=== PATIENT | male | born 1930 | race Caucasian/White ===

== ENCOUNTER 2017-03-09 09:49 | Emergency (ER) | payer MEDICARE, BC ==
[~2017-03-09] VITALS: Ht 175.3 cm; Wt 86.2 kg
[~2017-03-09 09:49] MED LIST: ALLOPURINOL300 MG PO; ASPIR 8181 MG PO; CARDURA2 MG PO; FORTAMET500 MG PO; INNOPRAN XL120 MG PO; LOTEMAX5 ML OP; LOTENSIN40 MG PO; LOVASTATIN20 MG PO; NORVASC5 MG PO; PRILOSEC20 MG PO; THERA TEARS NU1 EACH PO; VITAMIN D32000 UNIT PO
[2017-03-09] MEDS ORDERED: GABAPENTIN300 MG PO (10:09)
--- NOTE | 2017-03-09 15:35 | EKG ---
[facility] [address] [place] [id number] Signed Sinus bradycardia with 1st degree AV block with occasional premature ventricular complexes Otherwise normal ECG No previous ECGs available Confirmed by TANIA BOSCH MD ([id number] on 03/09/2017 3:35:10 PM Electronically Signed By: TANIA BOSCH MD 03/09/17 1535 PATIENT NAME: KARINA JOSUE Ramu Electrocardiogram DATE OF : [birth year] PHYSICIAN: TANIA BOSCH MD REPORT #: [id number] REPORT IS CONFIDENTIAL AND NOT TO BE RELEASED WITHOUT AUTHORIZATION
== END 2017-03-09 13:10 | disposition home or self-care (01) ==
LOC: ED 09:49
PROC: 4A0D7LZ Measurement of Urinary Volume, Via Natural or Artificial Opening (ICD-10-PCS; principal; 2017-03-09)
DX: I44.0 Atrioventricular block, first degree (principal); E86.0 Dehydration; R00.8 Other abnormalities of heart beat; I10 Essential (primary) hypertension; E11.9 Type 2 diabetes mellitus without complications; Z87.891 Personal history of nicotine dependence; Z90.49 Acquired absence of other specified parts of digestive tract; Z79.899 Other long term (current) drug therapy; Z79.82 Long term (current) use of aspirin
CPT/HCPCS: 51798; 71020; 80053; 81001; 85025; 93005; 93010; 96360; 99284; J7030